=== PATIENT | female | born 1985 | race Caucasian/White ===

== ENCOUNTER 2016-09-30 14:48 | Emergency (ER) | payer BC, OTHER ==
[~2016-09-30] VITALS: Ht 162.6 cm; Wt 59.1 kg
[~2016-09-30 14:48] MED LIST: ACET-1256 PO; BENZ10GE38 PO; LRT5 PO; NORGTAB3 PO
[2016-09-30 14:50] VITALS: TEMP 36.4; Ht 162.6 cm; Wt 59.1 kg
[2016-09-30] MEDS ORDERED: BCPILLS PO (15:20)
[2016-09-30 15:48] LABS: BASO % 0.3 %; BASO ABS # 0.02 K/uL (0-0.2); COMPLETE YES; EOS % 0.7 %; HEMATOCRIT 37.7 % (37-47); IG% 0.2 %; LYMPH % 19.1 %; LYMPH ABS # 1.12 K/uL (1.2-3.4); MEAN CELL VOLUME 96.4 fL (80-100); MEAN CORPUSCULAR HGB CONC 34.2 g/dl (32-36); MEAN PLATELET VOLUME 11.1 fL (7.4-10.4); MONO % 9.7 %; PLATELET COUNT 180 K/uL (130-400); RED BLOOD COUNT 3.91 M/uL (4.2-5.4); WHITE BLOOD COUNT 5.85 K/uL (4.8-10.8)
[2016-09-30 15:52] LABS: URINE APPEARANCE CLEAR (CLEAR); URINE BILIRUBIN NEG (NEG); URINE COLOR YELLOW; URINE EPITHELIAL CELL AUTO 20-30 /lpf (0-5); URINE NITRITE NEG (NEG); URINE PH 5.5 (4.5-7.5); URINE SPECIFIC GRAVITY 1.013 (1.000-1.030); UROBILINOGEN NEG (NEG); ZZUR CULT IF INDIC CLEAN CATCH NO
[2016-09-30] MEDS ORDERED: KETOROLAC TROMETHAMINE 30 MG/ML VIAL IV STA (15:53)
[2016-09-30 15:58] LABS: MANUAL MICROSCOPIC REQUIRED? NO; REVIEW REQ? NO
[2016-09-30] MEDS ORDERED: CEFTRIAXONE SOD INJ 1 GM ADDVIAL IV STA (16:04)
[2016-09-30 16:05] LABS: BUN/CREATININE RATIO 19.2 (10-20); CALCIUM 9.1 mg/dl (8.5-10.1); CREATININE 0.62 mg/dl (0.60-1.20); POTASSIUM 3.7 mmol/L (3.5-5.1)
[2016-09-30 16:19] LABS: PREG INTERNAL NEGATIVE QC NEG CLEAR BACKGROUND; PREG INTERNAL POSITIVE QC POS CONTROL LINE
--- NOTE | 2016-09-30 16:22 | EMERGENCY ROOM VISIT NOTE ---
History Report prepared by Forrest: Sabra Barton Under the Supervision of: Dr. Janice Ken D.O. First contact with patient: 14:55 Chief Complaint: URINARY SYMPTOMS Stated Complaint: POSSIBLE UTI, BAD KIDNEY PAIN Nursing Triage Summary: Pt c/o uti symptoms since . Frequency, urgency and pain. Taking Monistat. Now having pain in left flank since last night. History of Present Illness The patient is a 31 year old female who presents to the Emergency Room with complaints of persistent left flank pain starting 5 days ago. The pain started in her left abdomen and has moved into her side and left flank. She describes the pain as sharp. She has tried taking Monistat to no significant relief. She thought that she might have a UTI. She has had kidney infection. She reports that she does not have urinary urgency like she did with her previous kidney infection or dysuria. She notes spotting starting last week. Her period is supposed to be this week, but she has only had spotting. She reports chills and nausea. She denies any other atypical discharge, changes in the color or odor of her urine, bloating, distension, vomiting, cough, cold symptoms, chest pain, or headache. She denies any changes in activity or diet. Her control was changed earlier this year. She is not on any other medications. She denies any family history of kidney problems. She denies any history of kidney stones. Source of History: patient Onset: 5 days ago Position: other (left flank) Quality: sharp Timing: other (persistent) Associated Symptoms: + chills, + nausea, No headache, No chest pain, No vomiting Note: Pt reports spotting. Pt denies other atypical discharge, change in color or odor of urine, bloating, distension. Review of Systems See HPI for pertinent positives & negatives. A total of 10 systems reviewed and were otherwise negative. Past Medical & Surgical Medical Problems: (1) Kidney infection (2) Periapical abscess Family History No pertinent family history stated. Social History Smoking Status: Current Every Day Smoker Marital Status: in relationship Occupation Status: employed Current/Historical Medications Scheduled Control Pills ( Control Pills), 1 TAB PO DAILY Cephalexin Monohydrate (Keflex), 500 MG PO BID Allergies Coded Allergies: No Known Allergies (Verified , 07/12/15) Physical Exam Vital Signs Date Time Temp Pulse Resp B/P (MAP) Pulse Ox O2 Delivery O2 Flow Rate FiO2 09/30/16 17:39 61 16 119/69 97 Room Air 09/30/16 16:45 68 18 119/71 97 Room Air 09/30/16 14:50 36.4 95 16 128/70 95 Room Air Physical Exam GENERAL: alert, uncomfortable appearing, well nourished, no distress, non-toxic EYE EXAM: normal conjunctiva, PERRL and EOM's grossly intact OROPHARYNX: no exudate, no erythema, lips, buccal mucosa, and tongue normal and mucous membranes are moist NECK: supple, no nuchal rigidity, no adenopathy, non-tender LUNGS: Clear to auscultation. Normal chest wall mechanics HEART: no murmurs, S1 normal and S2 normal ABDOMEN: abdomen soft, non-tender, normo-active bowel sounds, no masses, no rebound or guarding. BACK: Back is symmetrical on inspection and there is no deformity, no midline tenderness, no CVA tenderness, left flank pain. SKIN: no rashes and no bruising UPPER EXTREMITIES: upper extremities are grossly normal. LOWER EXTREMITIES: No pitting edema. NEURO EXAM: Normal sensorium, cranial nerves II-XII grossly intact, normal speech, no gross weakness of arms, no gross weakness of legs. Medical Decision & Procedures ER Provider Diagnostic Interpretation: Radiology results have been interpreted by the radiologist and reviewed by me. RENAL ULTRASOUND HISTORY: Flank pain left flank pain, clinical pyelo COMPARISON: None. FINDINGS: Right kidney: Maximum dimension 10.3 cm. No evidence for hydronephrosis. Normal corticomedullary differentiation and cortical thickness. Left kidney: Maximum dimension 10.4 cm. No evidence for hydronephrosis. Normal corticomedullary differentiation and cortical thickness. Bladder: No bladder wall thickening. The bilateral ureteral jets were identified. IMPRESSION: Normal renal ultrasound. Electronically signed by: Obie Lincoln M.D. 09/30/2016 4:48 PM Dictated Date/Time: 09/30/2016 4:48 PM Laboratory Results 09/30/16 15:37 Red Blood Count 3.91, Mean Corpuscular Volume 96.4, Mean Corpuscular Hemoglobin 33.0, Mean Corpuscular Hemoglobin Concent 34.2, Mean Platelet Volume 11.1, Neutrophils (%) (Auto) 70.0, Lymphocytes (%) (Auto) 19.1, Monocytes (%) (Auto) 9.7, Eosinophils (%) (Auto) 0.7, Basophils (%) (Auto) 0.3, Neutrophils # (Auto) 4.09, Lymphocytes # (Auto) 1.12, Monocytes # (Auto) 0.57, Eosinophils # (Auto) 0.04, Basophils # (Auto) 0.02 09/30/16 15:37 Test 09/30/16 15:37 White Blood Count 5.85 K/uL (4.8-10.8) Red Blood Count 3.91 M/uL (4.2-5.4) Hemoglobin 12.9 g/dL (12.0-16.0) Hematocrit 37.7 % (37-47) Mean Corpuscular Volume 96.4 fL (80-100) Mean Corpuscular Hemoglobin 33.0 pg (25-34) Mean Corpuscular Hemoglobin Concent 34.2 g/dl (32-36) Platelet Count 180 K/uL (130-400) Mean Platelet Volume 11.1 fL (7.4-10.4) Neutrophils (%) (Auto) 70.0 % Lymphocytes (%) (Auto) 19.1 % Monocytes (%) (Auto) 9.7 % Eosinophils (%) (Auto) 0.7 % Basophils (%) (Auto) 0.3 % Neutrophils # (Auto) 4.09 K/uL (1.4-6.5) Lymphocytes # (Auto) 1.12 K/uL (1.2-3.4) Monocytes # (Auto) 0.57 K/uL (0.11-0.59) Eosinophils # (Auto) 0.04 K/uL (0-0.5) Basophils # (Auto) 0.02 K/uL (0-0.2) RDW Standard Deviation 41.8 fL (36.4-46.3) RDW Coefficient of Variation 11.8 % (11.5-14.5) Immature Granulocyte % (Auto) 0.2 % Immature Granulocyte # (Auto) 0.01 K/uL (0.00-0.02) Urine Color YELLOW Urine Appearance CLEAR (CLEAR) Urine pH 5.5 (4.5-7.5) Urine Specific [employer] 1.013 (1.000-1.030) Urine Protein NEG (NEG) Urine Glucose (UA) NEG (NEG) Urine Ketones 1+ (NEG) Urine Occult Blood NEG (NEG) Urine Nitrite NEG (NEG) Urine Bilirubin NEG (NEG) Urine Urobilinogen NEG (NEG) Urine Leukocyte Esterase TRACE (NEG) Urine WBC (Auto) 5-10 /hpf (0-5) Urine RBC (Auto) 0-4 /hpf (0-4) Urine Hyaline Casts (Auto) 1-5 /lpf (0-5) Urine Epithelial Cells (Auto) 20-30 /lpf (0-5) Urine Bacteria (Auto) NEG (NEG) Anion Gap 8.0 mmol/L (3-11) Est Creatinine Clear Calc Drug Dose 114.6 ml/min Estimated GFR () 140.2 Estimated GFR (Non- 121.0 BUN/Creatinine Ratio 19.2 (10-20) Calcium Level 9.1 mg/dl (8.5-10.1) Total Bilirubin 0.4 mg/dl (0.2-1) Aspartate Amino Transf (AST/SGOT) 10 U/L (15-37) Alanine Aminotransferase (ALT/SGPT) 17 U/L (12-78) Alkaline Phosphatase 41 U/L (45-117) Total Protein 7.2 gm/dl (6.4-8.2) Albumin 3.6 gm/dl (3.4-5.0) Globulin 3.6 gm/dl (2.5-4.0) Albumin/Globulin Ratio 1.0 (0.9-2) Human Chorionic Gonadotropin, Qual NEG (NEG) Laboratory results per my review. Medications Administered Medications (Trade) Dose Ordered Sig/Andrea Route Start Time Stop Time Status Last Admin Dose Admin Ketorolac Tromethamine (Toradol Inj) 30 mg NOW STAT IV 09/30/16 15:53 09/30/16 15:54 DC 09/30/16 16:17 30 MG Ceftriaxone Sodium (Rocephin Inj) 1 gm NOW STAT IV 09/30/16 16:04 09/30/16 16:05 DC 09/30/16 16:19 1 GM ED Course 1458: The patient was evaluated in room A4B. A complete history and physical exam was performed. 1553: Toradol Inj 30 mg IV. 1604: Rocephin Inj 1 gm IV. 1721: Upon reevaluation, the patient is feeling better. I discussed the findings and the treatment plan with the patient. She verbalizes agreement and understanding. She was discharged home. Medical Decision Differential diagnosis: Etiologies such as renal colic, appendicitis, diverticulitis, mesenteric ischemia, aortic pathology, infections, inflammatory bowel disease, PUD, biliary pathology, UTI, as well as others were entertained. Medication Reconciliation: I attest that I have personally reviewed the patient' s current medication list. Blood pressure screening: Patient was found to have a slightly elevated blood pressure due to circumstances. I do not believe that the patient requires hypertension monitoring. Patient clinically with a sending UTI, doubt mariposa pyelonephritis. No evidence of obstruction on imaging, normal renal function, no evidence of bacteremia/ sepsis. Patient improved here following IV fluids and Toradol. Given first dose of antibiotics here. 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 Discussed with patient symptoms watch return for, administration of antibiotics, over-the- counter pain medications, adequate hydration, she verbalized understanding was agreeable with plan. Impression Primary Impression: Urinary tract infection Scribe Attestation The scribe's documentation has been prepared under my direction and personally reviewed by me in its entirety. I confirm that the note above accurately reflects all work, treatment, procedures, and medical decision making performed by me. Departure Information Dispostion Home / Self-Care Prescriptions Cephalexin Monohydrate (Keflex) 500 Mg Cap 500 MG PO BID, #14 CAP Prov: Janice Ken, 09/30/16 Referrals Mejia Bentley M.D.([facility]) (PCP) Patient Instructions [facility] Additional Instructions Please call and follow-up with your family doctor. Please take your antibiotics as prescribed. You may use tylenol and ibuprofen as needed for pain. If you have any worsening pain, develop vomiting, fevers, are unable to urinate, or you have any other new or concerning symptoms, please return to the emergency room. Problem Qualifiers Primary Impression: Urinary tract infection Urinary tract infection type: acute cystitis Hematuria presence: without hematuria Qualified Codes: N30.00 - Acute cystitis without hematuria
--- NOTE | 2016-09-30 16:50 | DIAGNOSTIC IMAGING REPORT ---
RENAL ULTRASOUND HISTORY: Flank pain left flank pain, clinical pyelo COMPARISON: None. FINDINGS: Right kidney: Maximum dimension 10.3 cm. No evidence for hydronephrosis. Normal corticomedullary differentiation and cortical thickness. Left kidney: Maximum dimension 10.4 cm. No evidence for hydronephrosis. Normal corticomedullary differentiation and cortical thickness. Bladder: No bladder wall thickening. The bilateral ureteral jets were identified. IMPRESSION: Normal renal ultrasound. Electronically signed by: Obie Lincoln M.D. 09/30/2016 4:48 PM Dictated Date/Time: 09/30/2016 4:48 PM
[2016-09-30] MEDS ORDERED: CEPH500C PO (17:37)
[2016-09-30 17:39] VITALS: BP 119/69; PULSE 61; O2SAT 97
== END 2016-09-30 17:47 | disposition home or self-care (01) ==
LOC: C.EDB 14:49 → C.EDA 17:47
DX: N39.0 Urinary tract infection, site not specified (principal); R10.9 Unspecified abdominal pain; F17.210 Nicotine dependence, cigarettes, uncomplicated

== ENCOUNTER 2020-09-16 21:58 | Inpatient (IN) ==
[2020-09-16] MEDS ORDERED: LACTATED RINGER'S 1,000 ML IV PRN (22:12)
[2020-09-16] MEDS ORDERED: OXYTOCIN 30 UNITS/500 ML BAG IV PRN ×2 (22:12→22:51)
[2020-09-16] MEDS ORDERED: PENICILLIN G POTASSIUM 3 MU in DEXTROSE 5% 100 ML IV PRN (22:12)
[2020-09-16] MEDS ORDERED: PENICILLIN G POTASSIUM 6 MU in DEXTROSE 5% 250 ML IV STA (22:16)
--- NOTE | 2020-09-16 22:47 | Delivery Summary ---
Vaginal Delivery Summary Date of Service September 16, 2020 Vaginal Delivery Summary Delivery Note 35 F P2012 at 38 weeks admitted in active labor fully dilatated with precipitous delivery. I broke her water on admission with clear fluid. Vertex is +1 and she pushed with the next contraction to a normal vaginal delivery live female ISABELLA with and intact perineum. Delayed cord clamping. Apgars 8/9 weight pending. Cord blood obtained followed by spontaneous delivery of intact pl acenta. No tears. EBL 100 ml. Final sponge and instrument count are correct. Mom and baby stable.
[2020-09-16] MEDS ORDERED: bisacodyL 10 MG SUPP PR PRN (22:51)
[2020-09-16] MEDS ORDERED: HYDROCORTISONE ACETATE 25 MG SUPP PR PRN (22:51)
[2020-09-16] MEDS ORDERED: BENZOCAINE 20% AER SPR 82.5 GM CAN EXT PRN (22:51)
[2020-09-16] MEDS ORDERED: DIPHTHERIA/TETANUS/PERTUSSIS 0.5 ML SYR/VIAL IM ONE (22:51)
[2020-09-16] MEDS ORDERED: SUPERCREAM 0.870% 15 GM JAR EXT PRN (22:51)
[2020-09-16] MEDS ORDERED: ACETAMINOPHEN 325 MG TAB PO PRN (22:51)
[2020-09-16] MEDS ORDERED: IBUPROFEN 600 MG TAB PO ONE (22:57)
[2020-09-17] MEDS: IBUPROFEN 600 MG TAB PO PRN ×4 (04:34→20:10)
[2020-09-17 06:30] LABS: Hemoglobin 10.6 g/dL (12.0-16.0); Mean Corpuscular Hemoglobin 32.5 pg (25-34); Mean Corpuscular Hgb Conc 33.1 g/dL (32-36); Mean Corpuscular Volume 98.2 fL (80-100); Mean Platelet Volume 11.4 fL (7.4-10.4); Platelet Count 204 K/uL (130-400); RDW Coefficient of Variation 13.6 % (11.5-14.5); Red Blood Count 3.26 M/uL (4.2-5.4); White Blood Count 12.26 K/uL (4.8-10.8)
[2020-09-17] MEDS: DOCUSATE SODIUM 100 MG CAP PO SCH ×2 (08:29→20:10)
[2020-09-17] MEDS: PRENATAL VITAMIN 1 TAB PO SCH (08:29)
[2020-09-17] MEDS: FERROUS SULFATE 325 MG TAB PO SCH (08:29)
--- NOTE | 2020-09-17 08:38 | Obstetrical Progress Note ---
Date of Service September 17, 2020 Subjective Ambulation: ambulating normally Voiding: no voiding problems Passing Gas:: Yes Diet Tolerance:: regular diet Lochia:: Small Feeding Type:: breast feeding abdomen soft and non-tender fundus firm no edema tent d/c in AM Results & Data ([facility]) Vital Signs (Past 12 Hours) Vital Signs Temp Pulse Pulse Resp BP BP Pulse Ox 09/17/20 07:30 36.6 C 73 18 105/68 99 09/17/20 04:35 36.5 C 71 16 117/76 98 09/17/20 01:15 36.7 C 96 H 16 119/65 97 09/17/20 00:36 90 123/84 09/17/20 00:32 36.8 C 18 09/17/20 00:17 76 109/63 09/17/20 00:02 77 18 105/67 09/16/20 23:48 87 106/60 09/16/20 23:32 82 118/69 09/16/20 23:18 74 18 113/61 09/16/20 23:02 75 18 107/69 09/16/20 22:47 75 18 110/76 09/16/20 22:32 36.5 C 92 H 18 106/71 09/16/20 22:11 36.5 C 98 H 20 126/77 Laboratory Results 09/16/20 09/16/20 09/17/20 22:08 22:08 06:04 WBC 12.26 H RBC 3.26 L Hgb 10.6 L Hct 32.0 L MCV 98.2 MCH 32.5 MCHC 33.1 RDW Std Deviation 48.0 H RDW Coeff of [place] 13.6 Plt Count 204 MPV 11.4 H COVID-19 [facility] SARS-[facility]-2, RNA, NAAT NEGATIVE
[2020-09-17] MEDS ORDERED: bisacodyL 5 MG TABEC PO SCH (20:00)
[2020-09-18] MEDS: IBUPROFEN 600 MG TAB PO PRN (02:54)
[2020-09-18 06:33] LABS: Hemoglobin 10.4 g/dL (12.0-16.0)
[2020-09-18] MEDS: PRENATAL VITAMIN 1 TAB PO SCH (08:05)
[2020-09-18] MEDS: FERROUS SULFATE 325 MG TAB PO SCH (08:05)
[2020-09-18] MEDS: DOCUSATE SODIUM 100 MG CAP PO SCH (08:05)
--- NOTE | 2020-09-18 11:03 | Obstetrical Progress Note ---
Date of Service September 18, 2020 Assessment & Plan (1) Normal course: PPD #2 Pt doing well No complaints D/C home with instructions Subjective Ambulation: ambulating normally Voiding: no voiding problems Passing Gas:: Yes Diet Tolerance:: regular diet Lochia:: Small Feeding Type:: breast feeding Review of Systems All systems reviewed & are unremarkable except as noted in HPI & below Physical Exam Constitutional WD/WN, vitals as above well developed and well nourished Eyes PERRL, conjunctivae normal, anicteric sclerae Neck trachea midline, no thyromegaly Respiratory normal respiratory effort, lungs clear to auscultation Auscultation: no crackles, no rales and no wheezes Cardiovascular RRR, no murmur, no edema Gastrointestinal (Abdomen) normal bowel sounds, soft, nontender, no hepatosplenomegaly Uterus is below umbilicus Musculoskeletal no cyanosis or clubbing, extremities motor strength 5/5 Skin no rashes, warm and dry Neurologic patellar DTR's 2+ bilat, sensation intact Psychiatric A+Ox3, euthymic affect Genitourinary normal external appearance Results & Data ([facility]) Vital Signs (Past 12 Hours) Vital Signs Temp Pulse Resp BP Pulse Ox 09/18/20 08:55 36.6 C 77 18 112/71 98 09/18/20 00:00 36.6 C 57 L 18 129/77
== END 2020-09-18 17:58 | disposition home or self-care (01) | DRG 807 ==
LOC: OPB 21:58 → 4S1 22:03 → MERGE 22:12 → 4S2 09-17 01:23